=== PATIENT | male | born 1970 | race Hispanic/Latino ===

== ENCOUNTER → 2018-08-10 | Outpatient (CLI) | payer MEDICARE | END | disposition home or self-care (01) | LOC: RAH 09:40 | PROVIDERS: ATTEND Family Medicine | DX: K80.20 Calculus of gallbladder without cholecystitis without obstruction (principal); N28.1 Cyst of kidney, acquired | CPT/HCPCS: 76700 ==

== ENCOUNTER 2018-08-27 07:40 | Day surgery (SDC) | payer MEDICARE ==
[2018-08-25 12:15] LABS: BASOPHILS % (AUTO) 0.4 % (0.0-5.0); HEMATOCRIT 44.4 % (42-54); LYMPHOCYTES % (AUTO) 27.9 % (21.0-51.0); MEAN CORPUSCULAR HEMOGLOBIN 29.1 pg (27.0-33.0); MEAN CORPUSCULAR HGB CONC 34.1 g/dL (32.0-36.0); MEAN CORPUSCULAR VOLUME 85.2 fL (79-99); MONOCYTES % (AUTO) 9.8 % (3.0-13.0); NEUTROPHILS % (AUTO) 57.9 % (40.0-77.0); PLATELET COUNT (AUTO) 275 K/uL (130-400); RED BLOOD CELL COUNT(AUTO) 5.21 MIL/uL (4.50-6.20); RED CELL DISTRIBUTION WIDTH 13.9 % (11.0-15.5); WHITE BLOOD COUNT (AUTO) 7.8 K/uL (4.8-10.8)
[2018-08-25 12:22] LABS: APPEARANCE,URINE CLEAR (CLEAR); BILIRUBIN,URINE SMALL (NEGATIVE); COLOR,URINE YELLOW (YELLOW); GLUCOSE, URINE (UA) NEGATIVE (NEGATIVE); KETONES,URINE 5 mg/dL (NEGATIVE); LEUKOCYTE ESTERASE ,URINE NEGATIVE (NEGATIVE); NITRATE,URINE NEGATIVE (NEGATIVE); OCCULT BLOOD,URINE NEGATIVE (NEGATIVE); PH,URINE 6.5 (5.0-8.0); PROTEIN,URINE >=300 mg/dL (NEGATIVE)
[2018-08-25 12:23] VITALS: BP 157/90
[2018-08-25 12:26] LABS: BACTERIA,URINE Rare /HPF (None Seen); MUCUS,URINE Moderate LPF (None Seen); RBC,URINE 0-1 /HPF (0-1); SPERM,URINE Moderate /HPF (None Seen); SQUAMOUS EPITHELIAL CELL,UR Rare /HPF (0-2)
[2018-08-25 12:28] LABS: ALBUMIN 3.8 g/dL (3.5-5.0); BILIRUBIN,DIRECT 0.2 mg/dL (0.0-0.3); BILIRUBIN,TOTAL 0.7 mg/dL (0.2-1.0); TOTAL PROTEIN, SERUM 7.7 g/dL (6.0-8.3)
[2018-08-27] VITALS (14 sets, daily range): BP systolic 125–165; BP diastolic 66–97
[~2018-08-27] VITALS: Ht 167.6 cm; Wt 139.7 kg
[~2018-08-27 07:40] MED LIST: HYDR-4064 PO; LACTATED RINGERS 1000ML 1,000 ML IV SCH
[2018-08-27] MEDS ORDERED: PROPOFOL 10 MG/ML 20ML VIAL IV ONE (09:37)
[2018-08-27] MEDS ORDERED: DEXAMETHASONE SOD PHOSPHATE 10MG/ML 1ML VIAL ONE (09:37)
[2018-08-27] MEDS ORDERED: LIDOCAINE PF 2% 5ML ABBOJECT ONE (09:37)
[2018-08-27] MEDS ORDERED: MIDAZOLAM HCL 1 MG/ML 2ML VIAL ONE (09:37)
[2018-08-27] MEDS ORDERED: ONDANSETRON HCL 4 MG/2 ML VIAL ONE (09:37)
[2018-08-27] MEDS ORDERED: HEPARIN SODIUM 1000UNIT/ML 10ML VIAL ONE (09:37)
[2018-08-27] MEDS ORDERED: FENTANYL CITRATE PF 50 MCG/1 ML 2ML VIAL ONE (09:38)
[2018-08-27] MEDS ORDERED: ROCURONIUM 10MG/1ML SYR 10 MG/ML ML ONE ×2 (09:47→09:58)
[2018-08-27] MEDS ORDERED: MEPERIDINE-PF 25 MG/ML SYG ONE ×2 (11:09→11:21)
[2018-08-27] MEDS ORDERED: KETOROLAC TROMETHAMINE 30MG/ML ONE (11:10)
--- NOTE | 2018-08-27 11:50 | NUR ---
POST OP RECEIVED PATIENT FROM PACU, S/P LAP DAVIDE, BANDAIDS X 4 TO ABDOMEN DRY AND , VS STABLE . SPOUSE AT BEDSIDE.
--- NOTE | 2018-08-27 12:14 | NUR ---
DC DC INSTRUCTIONS GIVEN TO PTS SPOUSE, INSTRUCTED TO F/U WITH DR. MCGEE AND CONTINUE HOME HYDROCODONE. PT WAITING FOR RIDE THEN WILL GO HOME, BANDAIDS TO ABD X 4 DRY AND INTACT, PT DENIES ANY DISCOMFORTS. SPOUSE AT BEDSIDE. NO PIV NOTED REMOVED EARLIER
--- NOTE | 2018-08-27 12:25 | NUR ---
DC PT DC HOME VIA WC,NO DISTRESS NOTED. DENIED ANY PAIN OR DISCOMFORTS. VS STABLE
[2018-09-08] MEDS ORDERED: PANT40TA25 PO (10:25)
[2018-09-08] MEDS ORDERED: ONDA4TAB4 PO (10:25)
== END 2018-08-27 12:25 | disposition home or self-care (01) ==
LOC: DAH 07:40
PROVIDERS: ATTEND Surgery
DX: K80.10 Calculus of gallbladder with chronic cholecystitis without obstruction (principal); E11.9 Type 2 diabetes mellitus without complications; M54.5 Low back pain; I87.2 Venous insufficiency (chronic) (peripheral); D64.9 Anemia, unspecified; E66.01 Morbid (severe) obesity due to excess calories; M17.12 Unilateral primary osteoarthritis, left knee; R60.9 Edema, unspecified; F15.90 Other stimulant use, unspecified, uncomplicated; Z68.43 Body mass index [BMI] 50.0-59.9, adult; Z98.890 Other specified postprocedural states; Z79.899 Other long term (current) drug therapy; Z87.891 Personal history of nicotine dependence; Z83.3 Family history of diabetes mellitus; Z82.49 Family history of ischemic heart disease and other diseases of the circulatory system
CPT/HCPCS: 36415; 47562; 80076; 81001; 85025; 88304; A4450; C1769 ×5; J1100; J1644; J1885; J2001; J2175 ×2; J2250; J2405; J2704; J3010; J7030; J7120 ×2

== ENCOUNTER 2020-06-02 14:01 | Emergency (ER) | payer OTHER, MEDICARE ==
[~2020-06-02 14:01] MED LIST changes: -HYDR-4064 PO; -LACTATED RINGERS 1000ML 1,000 ML IV SCH; +ONDA4TAB4 PO; +PANT40TA55 PO
[2020-06-02] MEDS ORDERED: KETOROLAC 60 MG VIAL (30MG/ML) ONE (14:32)
== END 2020-06-02 14:56 | disposition home or self-care (01) ==
LOC: EDH 14:01
DX: S70.01XA Contusion of right hip, initial encounter (principal); G89.29 Other chronic pain; Z72.0 Tobacco use; X58.XXXA Exposure to other specified factors, initial encounter; Y93.89 Activity, other specified; Y92.89 Other specified places as the place of occurrence of the external cause; Y99.8 Other external cause status
CPT/HCPCS: 73502; 96372; 99283; J1885